=== PATIENT | female | born 1990 | race Caucasian/White ===

== ENCOUNTER 2022-04-06 00:21 | Outpatient (CLI) | payer OTHER ==
[~2022-04-06] VITALS: Ht 162.6 cm; Wt 63.5 kg
[2022-04-06] MEDS ORDERED: PRENATABS RX T1 EACH PO (00:52)
== END 2022-04-06 14:09 | disposition left against medical advice (07) ==
LOC: LDR 00:21 → OBS/DEL 00:21 → LDR 14:09 → EDSTATUS 04-07 13:33
PROVIDERS: ATTEND Student in an Organized Health Care Education/Training Program
DX: O46.8X3 Other antepartum hemorrhage, third trimester (principal); Z3A.34 34 weeks gestation of pregnancy